=== PATIENT | male | born 1965 | race Caucasian/White ===

== ENCOUNTER 2019-02-05 09:15 | Inpatient (IN) ==
[2019-02-05] MEDS ORDERED: IMODIUM PO PRN (12:48)
[2019-02-05] MEDS ORDERED: BENTYL PO PRN (12:48)
[2019-02-05] MEDS ORDERED: SEROQUEL PO PRN (12:48)
[2019-02-05] MEDS ORDERED: SENOKOT PO PRN (12:48)
[2019-02-05] MEDS ORDERED: D5W 1,000 ML IV PRN (12:48)
[2019-02-05] MEDS ORDERED: ZOFRAN IV PRN (12:48)
[2019-02-05] MEDS ORDERED: DULCOLAX PR PRN (12:48)
[2019-02-05] MEDS ORDERED: SALINE LOCK IV FLUID XX ONE (12:48)
[2019-02-05] MEDS ORDERED: PHENOBARBITAL IV PRN (12:48)
[2019-02-05] MEDS ORDERED: DESYREL PO PRN (12:48)
[2019-02-05] MEDS ORDERED: TUBERSOL ID ONE (12:48)
[2019-02-05] MEDS ORDERED: MAALOX PLUS LIQUID PO PRN (12:48)
[2019-02-05] MEDS: ATARAX PO PRN ×2 (13:20→18:45)
[2019-02-05] MEDS: NICODERM PATCH TD PRN (13:20)
[2019-02-05] MEDS: LIBRIUM PO SCH ×2 (13:28→20:28)
[2019-02-05 13:30] LABS: HEMATOCRIT 42.7 % (42.0-52.0); HEMOGLOBIN 14.4 g/dL (14.0-18.0); MCHC 33.7 g/dL (33-37); MPV 9.9 FL (7.4-10.4); RBC 4.8 XMIL (4.7-6.1); RDW 18.9 % (11.5-14.5); WBC 5.95 X1000 (4.8-10.8)
[2019-02-05 13:45] LABS: AGAP 10; ALBUMIN 4.1 g/dL (3.5-5.0); ALKALINE PHOSPHATASE 57 U/L (32-122); BUN 7 mg/dL (8-22); CALCIUM 8.5 mg/dL (8.8-10.2); CHLORIDE 101 mmol/L (98-107); COSMO 271; CREATININE 0.7 mg/dL (0.7-1.2); ESTIMATED GFR > 60; GLUCOSE 109 mg/dL (70-104); GOT 24 U/L (10-34); GPT 14 U/L (10-44); SODIUM 136 mmol/L (136-145); TCO2 24 mmol/L (25-35); TOTAL PROTEIN 7.1 g/dL (6.3-8.3)
[2019-02-05 13:48] LABS: AMYLASE 42 U/L (20-200); LIPASE 37 U/L (13-60)
[2019-02-05 13:56] LABS: UR AMPHETAMINES QUAL NONE DETECTED (NONE DETECT); UR BARBITUATES QUAL NONE DETECTED (NONE DETECT); UR BENZODIAZEPIN QUAL NONE DETECTED (NONE DETECT); UR CANNABINOIDS QUAL NONE DETECTED (NONE DETECT); UR COCAINE QUAL NONE DETECTED (NONE DETECT); UR METHADONE QUAL NONE DETECTED (NONE DETECT); UR METHAMPHETAMINE QUAL NONE DETECTED (NONE DETECT); UR OPIATES QUAL NONE DETECTED (NONE DETECT); UR OXYCODONE QUAL NONE DETECTED (NONE DETECT); UR PCP QUAL NONE DETECTED (NONE DETECT); UR PROPOXYPHENE QUAL NONE DETECTED (NONE DETECT); UR TCA QUAL NONE DETECTED (NONE DETECT)
[2019-02-05 13:56] LABS: INR 0.96; PROTIME 13.3 Seconds (11.0-16.0)
[2019-02-05] MEDS ORDERED: M.V.I.-12 10 ML, FOLIC ACID 1 MG, MAGNESIUM SULFATE 1 GM, THIAMINE 100 MG in NS 1,000 ML IV ONE (14:00)
[2019-02-05 15:30] LABS: URINE SOURCE VOIDED
[2019-02-05 15:39] LABS: BILIRUBIN URINE NEGATIVE (NEGATIVE); BLOOD URINE NEGATIVE (NEGATIVE); CLARITY CLEAR (CLEAR); COLOR YELLOW; GLUCOSE URINE NEGATIVE (NEGATIVE); KETONE URINE NEGATIVE (NEGATIVE); LEUKOCYTES URINE NEGATIVE (NEGATIVE); NITRITE URINE NEGATIVE (NEGATIVE); PROTEIN URINE NEGATIVE (NEGATIVE); UROBILINOGEN URINE NORMAL
[2019-02-05] MEDS: ROBAXIN PO PRN (17:11)
--- NOTE | 2019-02-05 20:27 | HISTORY AND PHYSICAL ---
CHIEF COMPLAINT: Nausea and vomiting. HISTORY OF PRESENT ILLNESS: The patient is a 53-year-old male who presented to [facility] secondary to nausea, vomiting, abdominal pain, myalgias. States he has been abusing alcohol and needs help getting his life back under control. SOCIAL HISTORY: Patient is a . He works at [employer] in [place]. States he has been drinking every day for the past 8 years, but now that he has a job, he has got to get his life back. PAST MEDICAL HISTORY: Positive for: 1. Arthritis. 2. Hypertension. 3. Chronic liver disease. 4. Chronic depression. 5. History of bipolar. 6. Previous heart attack in 2003 at [place]. 7. History of seizures due to alcohol withdrawal. 8. History of COPD. MEDICATIONS: He is on no current prescription medications. ALLERGIES: None. REVIEW OF SYSTEMS: CIWA score is elevated at 54 secondary to severe withdrawal symptoms, including seizures by history with alcohol withdrawal, visual and auditory hallucinations, history of worsening bipolar during his delirium tremens. He has already started having tremors, sweating, diarrhea, nausea, headaches. Denies any blurred vision or change in vision. Denies any focalized weakness of his extremities. Denies any dysuria, frequency, urgency, hesitancy. No polyuria or polydipsia. No constipation, melena, hematochezia. SUBSTANCE ABUSE HISTORY: The patient was in [facility] [place] [facility] in 2015 for 6 months, and [facility] detox as well in 2015. States that he is tired of drinking. He does not want to be that yue anymore. States he has been drunk for the past 8 years. He started drinking as early as age 3, currently drinking 15 or more 24-ounce beers a day. Started marijuana at age 9, and currently uses a gram on weekends only. Denies any other substance use or abuse. FAMILY HISTORY: Noncontributory. PHYSICAL EXAMINATION: VITAL SIGNS: Reviewed and stable. GENERAL: Patient is awake, alert, and currently in no respiratory distress, very pleasant to talk with. HEENT: Normocephalic. NECK: Supple. CARDIOVASCULAR: Regular rate. No murmurs. CHEST: Clear, nonlabored. ABDOMEN: Soft, nondistended, nontender. EXTREMITIES: Moves all extremities. NEUROLOGIC: No focal changes. SKIN: Warm and dry. No rashes. ASSESSMENT: 1. Nausea and vomiting. 2. Abdominal pain. 3. Myalgias. 4. Paresthesias. 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 6. Bipolar. 7. Chronic alcoholism, with acute withdrawal. PLAN: Will admit patient to the hospital, high-dose Librium taper, continue counseling. Further orders as needed. cc: Eliazar Logan MD
[2019-02-06] MEDS: LIBRIUM PO SCH ×4 (02:10→20:12)
[2019-02-06] MEDS: ZOFRAN ODT PO PRN ×2 (02:18→18:05)
[2019-02-06] MEDS: PROTONIX PO SCH (06:17)
[2019-02-06] MEDS: MOTRIN PO PRN ×2 (06:26→18:01)
[2019-02-06] MEDS: THERA M PLUS PO SCH (08:44)
[2019-02-06] MEDS: VITAMIN B-1 PO SCH (08:44)
[2019-02-06] MEDS: FOLIC ACID PO SCH (08:44)
[2019-02-06] MEDS: TYLENOL PO PRN (12:02)
[2019-02-06] MEDS: NICODERM PATCH TD PRN (12:02)
[2019-02-06] MEDS: ATARAX PO PRN (12:17)
[2019-02-06] MEDS: ROBAXIN PO PRN (18:01)
--- NOTE | 2019-02-06 19:58 | PROGRESS NOTE ---
DATE: 02/06/2019 SUBJECTIVE: Patient notes overall he is doing a little bit better. Denies any tremors. Denies any myalgias. States he still feels jittery and anxious, but this is improving. PHYSICAL EXAMINATION: Vital Signs: Reviewed and stable. Temperature 97, pulse 89, respiratory rate 18, BP 131/81. General: Patient is awake, alert. Currently, he is in no respiratory distress. Overall, he is improved from a withdrawal standpoint. HEENT: Normocephalic. Neck: Supple. Cardiovascular: Regular rate. No murmurs. Chest: Clear, nonlabored. Abdomen: Soft. Extremities: Moves all extremities. Neurologic: No changes. ASSESSMENT: 1. Nausea, vomiting. 2. Abdominal pain. 3. Myalgias. 4. Tremors. 5. Paresthesias. 6. Paroxysmal sweating. 7. Alcohol abuse, withdrawal and stabilization. PLAN: Continue patient in the hospital. Continue to wean Librium. Continue counseling. Further orders as needed. cc: Eliazar Logan MD
[2019-02-06] MEDS ORDERED: CATAPRES PO ONE (23:28)
[2019-02-07] MEDS: LIBRIUM PO SCH ×4 (02:39→20:06)
[2019-02-07] MEDS: TYLENOL PO PRN ×3 (05:13→20:06)
[2019-02-07] MEDS ORDERED: CATAPRES PO ONE (06:03)
[2019-02-07] MEDS: PROTONIX PO SCH (06:15)
[2019-02-07] MEDS: THERA M PLUS PO SCH (08:17)
[2019-02-07] MEDS: VITAMIN B-1 PO SCH (08:17)
[2019-02-07] MEDS: FOLIC ACID PO SCH (08:17)
[2019-02-07] MEDS: ROBAXIN PO PRN ×2 (14:08→20:06)
[2019-02-07] MEDS: NICODERM PATCH TD PRN (14:08)
[2019-02-07] MEDS: MOTRIN PO PRN (14:08)
--- NOTE | 2019-02-07 23:28 | PROGRESS NOTE ---
DATE: 02/07/2019 SUBJECTIVE: Patient notes he is starting to feel better. Denies any fevers, chills, denies any nausea, vomiting. PHYSICAL: Vital signs reviewed. He is awake, alert. He is in no respiratory distress.HEENT: Normocephalic. Neck: Supple. Cardiovascular: Regular rate. No murmurs. Chest: Clear, nonlabored. Abdomen: Soft, nondistended. Extremities: Moves all extremities. Neuro: No focal changes. Skin: Warm and dry. No rashes. ASSESSMENT: 1. Nausea, vomiting . 2. Abdominal pain. 3. Myalgias. 4. Paresthesias. 5. Paroxysmal sweating. 6. Opiate abuse withdrawal and stabilization. 7. Alcohol abuse withdrawal and stabilization. PLAN: Will continue patient on hospital, continue IV fluids as needed, continue tapering dose of Librium. Further orders as needed. cc: Eliazar Logan MD
[2019-02-08] MEDS: MOTRIN PO PRN ×2 (00:06→09:15)
[2019-02-08] MEDS: ATARAX PO PRN (00:06)
[2019-02-08] MEDS: LIBRIUM PO SCH (02:37)
[2019-02-08] MEDS: TYLENOL PO PRN (03:15)
[2019-02-08] MEDS: ROBAXIN PO PRN ×2 (03:15→09:15)
[2019-02-08] MEDS: PROTONIX PO SCH (06:21)
[2019-02-08 07:36] VITALS: BP 157/108
[2019-02-08] MEDS ORDERED: PRINIVIL PO SCH (09:00)
[2019-02-08] MEDS ORDERED: LIBRIUM PO SCH ×2 (09:00)
[2019-02-08] MEDS: FOLIC ACID PO SCH (09:13)
[2019-02-08] MEDS: THERA M PLUS PO SCH (09:14)
[2019-02-08] MEDS: VITAMIN B-1 PO SCH (09:14)
--- NOTE | 2019-02-08 20:38 | DISCHARGE SUMMARY ---
ADMISSION DATE: 02/05/2019 DISCHARGE DATE: 02/08/2019 DISCHARGE DIAGNOSES: 1. Nausea and vomiting. 2. Abdominal pain. 3. Myalgias. 4. Paresthesias. 5. Paroxysmal sweating. 6. Alcohol abuse, withdrawal and stabilization. CONSULTATIONS: None. PROCEDURES: None. BRIEF HOSPITAL COURSE: The patient is a 53-year-old male who presented to the hospital with withdrawal symptoms. He was placed on [facility], placed on high- dose Librium taper and continued to wean down. On discharge he is awake, alert. He is in no distress. He notes he is feeling better. The patient was noted to have high blood pressure while he was in the hospital. After discussion, he states that he has a history of high blood pressure and in fact, he had been on medication in the past but he is not currently on any medications. He was started on lisinopril. DISPOSITION: The patient will be discharged home, although I discussed with the patient that I would prefer for him to stay in the hospital another day or 2, to fully address his blood pressure. The patient is convinced that he needs to be discharged today. To prevent him from going AMA, we will discharge him. We will continue him on Librium taper per protocol over the next 3 days. We will start him on lisinopril 20 mg daily. I discussed with the patient to check his blood pressure in 2-4 days. If it is still elevated, he needs to increase to 40 mg. He will follow up outpatient with primary care of choice. Discussed with him that he needs outpatient life counseling as well as drug counseling. Discussed that he needs to avoid all persons, places and situations in which he has been using and abusing in the past. Greater than 30 minutes was spent in total care. We will not use naltrexone for withdrawal symptoms, as the patient does take pain medication for his chronic pain. cc: Eliazar Logan MD
== END 2019-02-08 11:19 | disposition home or self-care (01) | DRG 897 ==
LOC: P.MEDSURG 11:22
PROVIDERS: ADMIT Family Medicine; ATTEND Family Medicine
CPT/HCPCS: 80053; 80104; 80301; 80305; 80307; 80320; 82055; 82150; 83690; 85027; 85610; 86580; A9270; G0431; G0434; G0477; G0480; G6040; J3411; J3475; J7030